=== PATIENT | male | born 1960 | race Caucasian/White ===

== ENCOUNTER 2021-09-22 20:00 | Inpatient (IN) ==
[2021-09-22] MEDS ORDERED: SODIUM CHLORIDE 0.9% 500 ML IV STA (21:27)
[2021-09-22] MEDS ORDERED: PANTOPRAZOLE INJ 80 MG in SODIUM CHLORIDE 0.9% 100 ML IV STA (21:27)
[2021-09-22 21:48] LABS: Basophils % 0.2 % (0.0-0.8); Eosinophils % 0.1 % (0.00-10.9); Hematocrit 29.3 VOL% (42.0-52.0); Hemoglobin 8.8 GM/DL (14.0-18.0); Immature Granulocytes % 0.4 %; Immature Granulocytes Absolute 0.04 #; Lymphocytes # 1.5 10*3/uL (1.4-4.0); Lymphocytes % 16.3 % (21.2-54.2); Mean Corpuscular Volume 70.4 FL (87-102); Mean Platelet Volume 9.2 FL (9.6-12.0); Monocytes % 10.9 % (1.7-12.7); Neutrophils % 72.1 % (38.7-73.9); Platelet Count 398 T/CUMM (130-400); Red Blood Count 4.16 MC/CUMM (3.8-5.5); Red Cell Distribution Width 18.6 % (9.3-17.3); White Blood Count 9.1 T/CUMM (4-12)
[2021-09-22] MEDS ORDERED: PANTOPRAZOLE 40 MG VIAL IV ONE ×2 (21:49→22:04)
[2021-09-22 22:09] LABS: Alanine Aminotransferase 25 U/L (16-61); Albumin 2.6 G/DL (3.4-5.0); Alkaline Phosphatase 190 U/L (45-117); Aspartate Amino Transferase 22 U/L (0-37); Bilirubin,Total < 0.39 MG/DL (0.20-1.00); Blood Urea Nitrogen 15 MG/DL (7-18); Calcium 8.8 MG/DL (8.5-10.1); Carbon Dioxide 30 MMOL/L (21-32); Chloride 103 MMOL/L (98-107); Estimated Glom Filtration Rate 110 ML/MIN; Glucose 179 MG/DL (74-106); Osmolality,Calculated 277.8 MOS/KG (273-304); Potassium 3.6 MMOL/L (3.5-5.1); Sodium 137 MMOL/L (136-145); Total Protein 6.9 G/DL (6.4-8.2)
[2021-09-22] MEDS ORDERED: ONDANSETRON 4 MG/2 ML VIAL IV PRN (23:43)
[2021-09-22] MEDS ORDERED: GLUCAGON 1 MG VIAL IM PRN (23:43)
[2021-09-22] MEDS ORDERED: hydrALAZINE 20 MG/1 ML VIAL IV PRN (23:43)
[2021-09-22] MEDS ORDERED: DEXTROSE 10% 250 ML BAG IV PRN (23:49)
[2021-09-23] MEDS: PANTOPRAZOLE 40 MG VIAL IV SCH ×3 (00:11→21:20)
[2021-09-23] MEDS ORDERED: IRON SUCROSE 200 MG in SODIUM CHLORIDE 0.9% 100 ML IV ONE (01:52)
[2021-09-23] MEDS ORDERED: FERRIC GLUCONATE COMPLEX 125 MG in SODIUM CHLORIDE 0.9% 100 ML IV ONE (02:00)
[2021-09-23] MEDS: LACTATED RINGERS 1,000 ML IV SCH ×4 (03:45→22:50)
[2021-09-23 05:18] LABS: Basophils % 0.3 % (0.0-0.8); Eosinophils % 0.1 % (0.00-10.9); Hematocrit 26.4 VOL% (42.0-52.0); Immature Granulocytes % 0.4 %; Immature Granulocytes Absolute 0.03 #; Lymphocytes % 28.9 % (21.2-54.2); Mean Corpuscular HGB Conc 30.3 GM/DL (32-36); Mean Platelet Volume 10.1 FL (9.6-12.0); Monocytes # 0.6 10*3/uL (0.11-0.8); Monocytes % 8.5 % (1.7-12.7); Neutrophils % 61.8 % (38.7-73.9); Platelet Count 228 T/CUMM (130-400); Red Blood Count 3.72 MC/CUMM (3.8-5.5); Red Cell Distribution Width 18.6 % (9.3-17.3); White Blood Count 6.9 T/CUMM (4-12)
[2021-09-23 05:39] LABS: Band Neutrophils 1 % (0-10); Lymphocytes 29 % (20-55); Total Cells Counted 100
[2021-09-23 05:40] LABS: Anisocytosis Slight; Ovalocytes Few; Platelet Estimate Normal; Polychromasia Slight; Tear Drop Cells Few
[2021-09-23 06:47] LABS: Alanine Aminotransferase 20 U/L (16-61); Albumin 2.2 G/DL (3.4-5.0); Alkaline Phosphatase 167 U/L (45-117); Aspartate Amino Transferase 12 U/L (0-37); Bilirubin,Total < 0.39 MG/DL (0.20-1.00); Blood Urea Nitrogen 11 MG/DL (7-18); Calcium 8.4 MG/DL (8.5-10.1); Carbon Dioxide 26 MMOL/L (21-32); Chloride 106 MMOL/L (98-107); Estimated Glom Filtration Rate 116 ML/MIN; Glucose 122 MG/DL (74-106); Osmolality,Calculated 278.4 MOS/KG (273-304); Potassium 3.5 MMOL/L (3.5-5.1); Sodium 140 MMOL/L (136-145); Total Protein 6.3 G/DL (6.4-8.2)
[2021-09-23] MEDS: ACETAMINOPHEN 325 MG TABLET PO PRN (07:50)
[2021-09-23] MEDS ORDERED: POTASSIUM CHLORIDE 20 MEQ TABLET PO ONE (08:34)
[2021-09-23] MEDS ORDERED: LOSARTAN 25 MG TABLET PO SCH (09:00)
[2021-09-23] MEDS ORDERED: PANTOPRAZOLE 40 MG TABLET PO SCH (09:00)
[2021-09-23] MEDS ORDERED: CELECOXIB 200 MG CAPSULE PO SCH (09:00)
[2021-09-23] MEDS: CALCIUM CARBONATE CHEW 500 MG TABLET PO SCH (10:02)
[2021-09-23] MEDS: FLUDROCORTISONE 0.1 MG TABLET PO SCH (10:02)
[2021-09-23] MEDS: PREGABALIN 75 MG CAPSULE PO SCH ×2 (10:02→21:20)
[2021-09-23] MEDS: predniSONE 5 MG TABLET PO SCH (10:03)
[2021-09-23] MEDS: atenoloL 50 MG TABLET PO SCH ×2 (10:04→21:21)
[2021-09-23] MEDS: AMIODARONE 200 MG TABLET PO SCH (10:04)
[2021-09-23] MEDS: BACLOFEN 10 MG TABLET PO SCH ×2 (10:05→21:20)
[2021-09-23] MEDS: TAMSULOSIN 0.4 MG CAPSULE PO SCH (10:05)
[2021-09-23] MEDS: LOSARTAN 50 MG TABLET PO SCH (10:05)
[2021-09-23] MEDS: BISACODYL 5 MG TABLET PO SCH ×2 (11:24→17:33)
[2021-09-23] MEDS ORDERED: POLYETHYLENE GLYCOL POWDER 255 GM BOTTLE PO ONE (18:00)
[2021-09-23] MEDS ORDERED: MAGNESIUM CITRATE 300 ML BOTTLE PO ONE (21:00)
[2021-09-23] MEDS ORDERED: SIMVASTATIN 20 MG TABLET PO SCH (21:00)
[2021-09-23] MEDS ORDERED: DEXTROSE 50% 25 GM/50 ML VIAL IV PRN (21:02)
[2021-09-23] MEDS: BIMATOPROST 0.01% OPH SOLN 2.5 ML BOTTLE BOTH EYES SCH (21:20)
[2021-09-23] MEDS: INSULIN LISPRO 100 UNIT/ML SUBCUT SCH (21:22)
[2021-09-24] MEDS: BISACODYL 5 MG TABLET PO SCH (00:34)
[2021-09-24 04:27] LABS: Basophils % 0.1 % (0.0-0.8); Eosinophils % 0.4 % (0.00-10.9); Hematocrit 29.5 VOL% (42.0-52.0); Hemoglobin 8.7 GM/DL (14.0-18.0); Immature Granulocytes % 0.7 %; Immature Granulocytes Absolute 0.05 #; Lymphocytes # 1.5 10*3/uL (1.4-4.0); Lymphocytes % 19.8 % (21.2-54.2); Mean Corpuscular HGB Conc 29.5 GM/DL (32-36); Mean Corpuscular Volume 71.1 FL (87-102); Monocytes # 0.9 10*3/uL (0.11-0.8); Monocytes % 11.5 % (1.7-12.7); Neutrophils % 67.5 % (38.7-73.9); Platelet Count 357 T/CUMM (130-400); Red Blood Count 4.15 MC/CUMM (3.8-5.5); Red Cell Distribution Width 18.6 % (9.3-17.3); White Blood Count 7.6 T/CUMM (4-12)
[2021-09-24 04:47] LABS: Alanine Aminotransferase 21 U/L (16-61); Albumin 2.4 G/DL (3.4-5.0); Alkaline Phosphatase 162 U/L (45-117); Aspartate Amino Transferase 13 U/L (0-37); Bilirubin,Total < 0.39 MG/DL (0.20-1.00); Blood Urea Nitrogen 6 MG/DL (7-18); Calcium 8.7 MG/DL (8.5-10.1); Carbon Dioxide 28 MMOL/L (21-32); Chloride 107 MMOL/L (98-107); Eosinophils 1 % (0-10); Estimated Glom Filtration Rate 123 ML/MIN; Glucose 108 MG/DL (74-106); Hypochromia 1+; Lymphocytes 20 % (20-55); Microcytosis 1+; Osmolality,Calculated 281.1 MOS/KG (273-304); Platelet Estimate Adequate; Potassium 3.3 MMOL/L (3.5-5.1); Sodium 142 MMOL/L (136-145); Total Cells Counted 100; Total Protein 6.6 G/DL (6.4-8.2)
[2021-09-24] MEDS ORDERED: POTASSIUM CHLORIDE 20 MEQ TABLET PO PRN (07:43)
[2021-09-24] MEDS: atenoloL 50 MG TABLET PO SCH ×2 (09:00→21:00)
[2021-09-24] MEDS: BACLOFEN 10 MG TABLET PO SCH ×2 (09:00→21:00)
[2021-09-24] MEDS: PANTOPRAZOLE 40 MG VIAL IV SCH ×2 (09:00→21:01)
[2021-09-24] MEDS: PREGABALIN 75 MG CAPSULE PO SCH ×2 (09:00→21:00)
[2021-09-24] MEDS: INSULIN LISPRO 100 UNIT/ML SUBCUT SCH ×7 (10:07→22:14)
[2021-09-24] MEDS: LACTATED RINGERS 1,000 ML IV SCH ×3 (11:23→21:13)
[2021-09-24] MEDS ORDERED: LIDOCAINE 2% 5 ML VIAL ONE (15:07)
[2021-09-24] MEDS ORDERED: propofoL 200 MG/20 ML VIAL IV ONE ×2 (15:07→15:35)
[2021-09-24] MEDS ORDERED: TUBERCULIN SKIN TEST 0.1 ML SYRINGE INTRADERM ONE (15:49)
[2021-09-24] MEDS: AMIODARONE 200 MG TABLET PO SCH (17:05)
[2021-09-24] MEDS: TAMSULOSIN 0.4 MG CAPSULE PO SCH (17:05)
[2021-09-24] MEDS: CALCIUM CARBONATE CHEW 500 MG TABLET PO SCH (17:05)
[2021-09-24] MEDS: FLUDROCORTISONE 0.1 MG TABLET PO SCH (17:05)
[2021-09-24] MEDS: LOSARTAN 50 MG TABLET PO SCH (17:06)
[2021-09-24] MEDS: predniSONE 5 MG TABLET PO SCH (17:18)
[2021-09-24] MEDS ORDERED: predniSONE 5 MG TABLET PO ONE (20:07)
[2021-09-24] MEDS: ACETAMINOPHEN 325 MG TABLET PO PRN (21:00)
[2021-09-24] MEDS: BIMATOPROST 0.01% OPH SOLN 2.5 ML BOTTLE BOTH EYES SCH (21:00)
[2021-09-25] MEDS: LACTATED RINGERS 1,000 ML IV SCH ×3 (01:59→18:16)
[2021-09-25 04:40] LABS: Basophils % 0.2 % (0.0-0.8); Hematocrit 26.5 VOL% (42.0-52.0); Hemoglobin 7.9 GM/DL (14.0-18.0); Immature Granulocytes % 0.5 %; Immature Granulocytes Absolute 0.04 #; Lymphocytes # 0.8 10*3/uL (1.4-4.0); Lymphocytes % 9.9 % (21.2-54.2); Mean Corpuscular HGB Conc 29.8 GM/DL (32-36); Mean Corpuscular Volume 71.2 FL (87-102); Mean Platelet Volume 9.7 FL (9.6-12.0); Monocytes # 0.5 10*3/uL (0.11-0.8); Neutrophils % 83.4 % (38.7-73.9); Platelet Count 326 T/CUMM (130-400); Red Blood Count 3.72 MC/CUMM (3.8-5.5); Red Cell Distribution Width 18.6 % (9.3-17.3); White Blood Count 8.2 T/CUMM (4-12)
[2021-09-25 04:59] LABS: Albumin 2.1 G/DL (3.4-5.0); Bilirubin,Total 0.4 MG/DL (0.20-1.00); Calcium 8.2 MG/DL (8.5-10.1); Osmolality,Calculated 277.5 MOS/KG (273-304); Potassium 4.1 MMOL/L (3.5-5.1); Total Protein 6.1 G/DL (6.4-8.2)
[2021-09-25] MEDS: INSULIN LISPRO 100 UNIT/ML SUBCUT SCH ×7 (07:54→20:32)
[2021-09-25] MEDS: PREGABALIN 75 MG CAPSULE PO SCH ×2 (08:30→20:31)
[2021-09-25] MEDS: CALCIUM CARBONATE CHEW 500 MG TABLET PO SCH (08:30)
[2021-09-25] MEDS: FLUDROCORTISONE 0.1 MG TABLET PO SCH (08:30)
[2021-09-25] MEDS: predniSONE 20 MG TABLET PO SCH (08:30)
[2021-09-25] MEDS: BACLOFEN 10 MG TABLET PO SCH ×2 (08:30→20:31)
[2021-09-25] MEDS: PANTOPRAZOLE 40 MG VIAL IV SCH ×2 (08:31→20:32)
[2021-09-25] MEDS: LOSARTAN 50 MG TABLET PO SCH (08:31)
[2021-09-25] MEDS: TAMSULOSIN 0.4 MG CAPSULE PO SCH (08:31)
[2021-09-25] MEDS: AMIODARONE 200 MG TABLET PO SCH (08:31)
[2021-09-25] MEDS: atenoloL 50 MG TABLET PO SCH ×2 (08:31→20:31)
[2021-09-25] MEDS: ALBUTEROL/IPRATROPIUM 3 ML NEB RESP TX SCH ×2 (14:24→19:55)
[2021-09-25 17:34] LABS: RBC,Urine <1 /HPF (0-4); Squamous Epithelial Cell,Urine Occasional /HPF (0-10)
[2021-09-25 17:40] LABS: Urine Appearance Clear (Clear); Urine Color Yellow (Yellow); Urine pH 6.5 (4.5-8.0)
[2021-09-25 17:41] LABS: Bilirubin,Urine Negative (Negative); Blood, Urine Negative (Negative); Glucose,Urine (UA) 100 mg/dL (Negative); Ketones,Urine Negative (Negative); Nitrite,Urine Negative (Negative); Protein,Urine Negative (Negative); Urine Specific Gravity 1.015 (1.001-1.035)
[2021-09-25] MEDS ORDERED: predniSONE 20 MG TABLET PO ONE (18:00)
[2021-09-25] MEDS: APIXABAN 5 MG TABLET PO SCH (20:31)
[2021-09-25] MEDS: BIMATOPROST 0.01% OPH SOLN 2.5 ML BOTTLE BOTH EYES SCH (20:35)
[2021-09-25] MEDS ORDERED: KETOROLAC 30 MG/1 ML VIAL IV ONE (23:11)
[2021-09-26] MEDS: LACTATED RINGERS 1,000 ML IV SCH (00:55)
[2021-09-26 05:00] LABS: Basophils % 0.2 % (0.0-0.8); Hemoglobin 7.8 GM/DL (14.0-18.0); Immature Granulocytes % 0.3 %; Immature Granulocytes Absolute 0.02 #; Lymphocytes # 0.6 10*3/uL (1.4-4.0); Lymphocytes % 9.5 % (21.2-54.2); Mean Corpuscular HGB Conc 28.9 GM/DL (32-36); Mean Platelet Volume 10.1 FL (9.6-12.0); Monocytes # 0.3 10*3/uL (0.11-0.8); Monocytes % 4.8 % (1.7-12.7); Neutrophils % 85.2 % (38.7-73.9); Platelet Count 360 T/CUMM (130-400); Red Blood Count 3.75 MC/CUMM (3.8-5.5); Red Cell Distribution Width 18.4 % (9.3-17.3); White Blood Count 6.2 T/CUMM (4-12)
[2021-09-26 05:17] LABS: % Iron Saturation 11.7 % (18-50)
[2021-09-26 05:25] LABS: Alanine Aminotransferase 24 U/L (16-61); Albumin 2.4 G/DL (3.4-5.0); Alkaline Phosphatase 176 U/L (45-117); Aspartate Amino Transferase 9 U/L (0-37); Bilirubin,Total < 0.39 MG/DL (0.20-1.00); Blood Urea Nitrogen 12 MG/DL (7-18); Calcium 8.7 MG/DL (8.5-10.1); Carbon Dioxide 25 MMOL/L (21-32); Chloride 108 MMOL/L (98-107); Estimated Glom Filtration Rate 110 ML/MIN; Glucose 346 MG/DL (74-106); Osmolality,Calculated 290.5 MOS/KG (273-304); Potassium 4.4 MMOL/L (3.5-5.1); Sodium 139 MMOL/L (136-145); Total Protein 6.5 G/DL (6.4-8.2)
[2021-09-26 05:31] LABS: Folate 14.43 NG/ML (5.38-24.0)
[2021-09-26] MEDS: INSULIN LISPRO 100 UNIT/ML SUBCUT SCH ×4 (06:43→11:55)
[2021-09-26] MEDS: ALBUTEROL/IPRATROPIUM 3 ML NEB RESP TX SCH ×3 (07:03→13:17)
[2021-09-26] MEDS: FLUDROCORTISONE 0.1 MG TABLET PO SCH (08:22)
[2021-09-26] MEDS: APIXABAN 5 MG TABLET PO SCH (08:22)
[2021-09-26] MEDS: PREGABALIN 75 MG CAPSULE PO SCH (08:22)
[2021-09-26] MEDS: LOSARTAN 50 MG TABLET PO SCH (08:22)
[2021-09-26] MEDS: predniSONE 20 MG TABLET PO SCH (08:22)
[2021-09-26] MEDS: AMIODARONE 200 MG TABLET PO SCH (08:22)
[2021-09-26] MEDS: TAMSULOSIN 0.4 MG CAPSULE PO SCH (08:22)
[2021-09-26] MEDS: BACLOFEN 10 MG TABLET PO SCH (08:22)
[2021-09-26] MEDS: CALCIUM CARBONATE CHEW 500 MG TABLET PO SCH (08:23)
[2021-09-26] MEDS: atenoloL 50 MG TABLET PO SCH (08:23)
[2021-09-26] MEDS: PANTOPRAZOLE 40 MG VIAL IV SCH (08:23)
[2021-09-26 12:29] VITALS: BP 146/66
[2021-09-28] MEDS ORDERED: CHOLECALCIFEROL 1,000 UNIT TABLET PO SCH (09:00)
== END 2021-09-26 16:10 | disposition home or self-care (01) | DRG 375 ==
LOC: N.ED 20:00 → SUATTDRO 23:43 → N.EDINP 23:43 → N.3E 09-23 03:59
PROVIDERS: ADMIT Internal Medicine; ATTEND Internal Medicine

== ENCOUNTER 2021-10-18 12:10 | Inpatient (IN) ==
[2021-10-18 13:22] LABS: Albumin 3.1 G/DL (3.4-5.0); Bilirubin,Total 0.6 MG/DL (0.20-1.00); Calcium 8.8 MG/DL (8.5-10.1); Osmolality,Calculated 281.4 MOS/KG (273-304); Potassium 3.7 MMOL/L (3.5-5.1); Total Protein 6.4 G/DL (6.4-8.2)
[2021-10-18 13:26] LABS: Basophils % 0.4 % (0.0-0.8); Eosinophils % 0.4 % (0.00-10.9); Hematocrit 32.9 VOL% (42.0-52.0); Hemoglobin 9.3 GM/DL (14.0-18.0); Immature Granulocytes % 0.6 %; Immature Granulocytes Absolute 0.06 #; Lymphocytes # 1.5 10*3/uL (1.4-4.0); Mean Corpuscular HGB Conc 28.3 GM/DL (32-36); Mean Corpuscular Volume 72.3 FL (87-102); Mean Platelet Volume 9.6 FL (9.6-12.0); Monocytes # 0.9 10*3/uL (0.11-0.8); Monocytes % 8.6 % (1.7-12.7); Platelet Count 340 T/CUMM (130-400); Red Blood Count 4.55 MC/CUMM (3.8-5.5); Red Cell Distribution Width 21.6 % (9.3-17.3); White Blood Count 10.8 T/CUMM (4-12)
[2021-10-18 13:30] LABS: Anisocytosis Slight; Hypochromia 2+; Macrocytosis Slight; Microcytosis Slight; Platelet Estimate Adequate; Polychromasia 1+
[2021-10-18] MEDS ORDERED: FUROSEMIDE 40 MG/4 ML VIAL IV STA (16:39)
[2021-10-18] MEDS ORDERED: MAGNESIUM SULF RIDER 4 GM/100 ML PREMIX IV PRN (18:13)
[2021-10-18] MEDS ORDERED: DEXTROSE 50% 25 GM/50 ML VIAL IV PRN (18:13)
[2021-10-18] MEDS ORDERED: MAGNESIUM SULF RIDER 2 GM/50 ML PREMIX IV PRN (18:13)
[2021-10-18] MEDS ORDERED: GLUCAGON 1 MG VIAL IM PRN (18:13)
[2021-10-18] MEDS ORDERED: ONDANSETRON 4 MG/2 ML VIAL IV PRN (18:13)
[2021-10-18] MEDS ORDERED: ACETAMINOPHEN 325 MG TABLET PO PRN (18:13)
[2021-10-18] MEDS ORDERED: DEXTROSE 10% 250 ML BAG IV PRN (18:27)
[2021-10-18] MEDS: INSULIN REGULAR 100 UNIT/ML SUBCUT SCH (21:28)
[2021-10-19 04:23] LABS: Anisocytosis Slight; Platelet Estimate Normal
[2021-10-19 04:26] LABS: Albumin 2.9 G/DL (3.4-5.0); Bilirubin,Total 0.4 MG/DL (0.20-1.00); Calcium 8.9 MG/DL (8.5-10.1); Osmolality,Calculated 288.4 MOS/KG (273-304); Potassium 3.8 MMOL/L (3.5-5.1); Total Protein 6.4 G/DL (6.4-8.2)
[2021-10-19 04:32] LABS: Basophils % 0.2 % (0.0-0.8); Eosinophils % 0.2 % (0.00-10.9); Hemoglobin 9.4 GM/DL (14.0-18.0); Immature Granulocytes % 0.6 %; Immature Granulocytes Absolute 0.05 #; Lymphocytes # 1.5 10*3/uL (1.4-4.0); Lymphocytes % 17.4 % (21.2-54.2); Mean Corpuscular HGB Conc 28.3 GM/DL (32-36); Mean Corpuscular Volume 72.5 FL (87-102); Mean Platelet Volume 9.6 FL (9.6-12.0); Monocytes # 0.6 10*3/uL (0.11-0.8); Monocytes % 7.1 % (1.7-12.7); Neutrophils % 74.5 % (38.7-73.9); Platelet Count 370 T/CUMM (130-400); Red Blood Count 4.58 MC/CUMM (3.8-5.5); Red Cell Distribution Width 21.5 % (9.3-17.3); White Blood Count 8.3 T/CUMM (4-12)
[2021-10-19 04:34] LABS: Hematocrit 33.2 VOL% (42.0-52.0)
[2021-10-19 04:49] LABS: Hypochromia 1+
[2021-10-19 04:50] LABS: Microcytosis 1+; Ovalocytes Slight
[2021-10-19] MEDS ORDERED: BACLOFEN 10 MG TABLET PO PRN (07:10)
[2021-10-19] MEDS ORDERED: ASPIRIN 325 MG TABLET PO ONE (07:44)
[2021-10-19] MEDS ORDERED: DIAZEPAM 5 MG TABLET PO ONE (07:44)
[2021-10-19] MEDS ORDERED: diphenhydrAMINE CAP 25 MG CAPSULE PO ONE (07:44)
[2021-10-19] MEDS: INSULIN REGULAR 100 UNIT/ML SUBCUT SCH ×4 (08:35→20:54)
[2021-10-19] MEDS: INSULIN LISPRO 100 UNIT/ML SUBCUT SCH ×3 (08:36→17:26)
[2021-10-19] MEDS ORDERED: atenoloL 25 MG TABLET PO SCH (09:00)
[2021-10-19] MEDS ORDERED: predniSONE 20 MG TABLET PO SCH ×2 (09:00→10:30)
[2021-10-19] MEDS ORDERED: LOSARTAN 50 MG TABLET PO SCH (09:00)
[2021-10-19] MEDS: AMIODARONE 200 MG TABLET PO SCH (10:54)
[2021-10-19] MEDS ORDERED: HEPARIN/NACL 0.9% 2 UNITS/ML 2,000 UNIT/1,000 ML BAG IV ONE (10:55)
[2021-10-19] MEDS ORDERED: MIDAZOLAM 2 MG/2 ML VIAL ONE (11:19)
[2021-10-19] MEDS ORDERED: HYDROmorphone 1 MG/1 ML SYRINGE ONE (11:23)
[2021-10-19] MEDS ORDERED: diphenhydrAMINE 50 MG/1 ML VIAL ONE (11:40)
[2021-10-19] MEDS ORDERED: FUROSEMIDE 40 MG/4 ML VIAL ONE (12:00)
[2021-10-19] MEDS: TAMSULOSIN 0.4 MG CAPSULE PO SCH (12:35)
[2021-10-19] MEDS: FLUDROCORTISONE 0.1 MG TABLET PO SCH (12:35)
[2021-10-19] MEDS: MULTIVITAMIN (INTRINSIC) CAPSULE PO SCH ×2 (12:36→20:52)
[2021-10-19] MEDS: PANTOPRAZOLE 40 MG TABLET PO SCH (12:36)
[2021-10-19] MEDS: PREGABALIN 75 MG CAPSULE PO SCH ×2 (12:36→20:53)
[2021-10-19] MEDS: ENOXAPARIN 40 MG/0.4 ML SYRINGE SUBCUT SCH (12:36)
[2021-10-19] MEDS: CALCIUM CARBONATE CHEW 500 MG TABLET PO SCH (12:36)
[2021-10-19] MEDS: ALBUTEROL/IPRATROPIUM 3 ML NEB RESP TX SCH ×2 (13:40→19:40)
[2021-10-19] MEDS: FUROSEMIDE 40 MG/4 ML VIAL IV SCH ×2 (14:22→17:26)
[2021-10-19] MEDS: DAPAGLIFLOZIN 10 MG TABLET PO SCH (14:22)
[2021-10-19] MEDS: carvediloL 6.25 MG TABLET PO SCH (20:53)
[2021-10-19] MEDS: BIMATOPROST 0.01% OPH SOLN 2.5 ML BOTTLE BOTH EYES SCH (21:02)
[2021-10-20] MEDS: ALBUTEROL/IPRATROPIUM 3 ML NEB RESP TX SCH ×4 (01:47→19:56)
[2021-10-20 05:38] LABS: Calcium 8.1 MG/DL (8.5-10.1); Osmolality,Calculated 283.3 MOS/KG (273-304); Potassium 3.4 MMOL/L (3.5-5.1)
[2021-10-20 05:49] LABS: Platelet Estimate Adequate
[2021-10-20 05:50] LABS: Hypochromia Slight
[2021-10-20 05:51] LABS: Basophils % 0.3 % (0.0-0.8); Eosinophils % 0.1 % (0.00-10.9); Hematocrit 28.9 VOL% (42.0-52.0); Hemoglobin 8.4 GM/DL (14.0-18.0); Immature Granulocytes % 0.4 %; Immature Granulocytes Absolute 0.03 #; Lymphocytes # 1.8 10*3/uL (1.4-4.0); Lymphocytes % 24.9 % (21.2-54.2); Mean Corpuscular HGB Conc 29.1 GM/DL (32-36); Mean Corpuscular Volume 71.4 FL (87-102); Mean Platelet Volume 9.6 FL (9.6-12.0); Monocytes # 0.7 10*3/uL (0.11-0.8); Monocytes % 9.6 % (1.7-12.7); Neutrophils % 64.7 % (38.7-73.9); Platelet Count 321 T/CUMM (130-400); Red Blood Count 4.05 MC/CUMM (3.8-5.5); Red Cell Distribution Width 21.2 % (9.3-17.3); White Blood Count 7.3 T/CUMM (4-12)
[2021-10-20] MEDS ORDERED: methylPREDNISolone SOD SUC 125 MG/2 ML VIAL IV ONE (07:59)
[2021-10-20 08:27] LABS: Arterial Base Excess iSTAT 7 MMOL/L (-2.5-2.5); Arterial Bicarbonate iSTAT 32.2 MMOL/L (20-26); Arterial O2 Saturation iSTAT 92 % (95-100); Arterial PCO2 iSTAT 47 MM HG (35-48); Arterial PO2 iSTAT 63 MM HG (80-95); Arterial Total CO2 iSTAT 34 MMO/L (23-27); Arterial pH iSTAT 7.441 (7.35-7.45)
[2021-10-20] MEDS: MULTIVITAMIN (INTRINSIC) CAPSULE PO SCH ×2 (08:50→21:10)
[2021-10-20] MEDS: CALCIUM CARBONATE CHEW 500 MG TABLET PO SCH (08:50)
[2021-10-20] MEDS: AMIODARONE 200 MG TABLET PO SCH (08:50)
[2021-10-20] MEDS: PREGABALIN 75 MG CAPSULE PO SCH ×2 (08:50→21:10)
[2021-10-20] MEDS: PANTOPRAZOLE 40 MG TABLET PO SCH (08:51)
[2021-10-20] MEDS: TAMSULOSIN 0.4 MG CAPSULE PO SCH (08:51)
[2021-10-20] MEDS: carvediloL 6.25 MG TABLET PO SCH ×2 (08:51→21:09)
[2021-10-20] MEDS: FLUDROCORTISONE 0.1 MG TABLET PO SCH (08:51)
[2021-10-20] MEDS: SACUBITRIL/VALSARTAN 49-51 MG TABLET PO SCH ×2 (08:51→21:09)
[2021-10-20] MEDS: DAPAGLIFLOZIN 10 MG TABLET PO SCH (08:51)
[2021-10-20] MEDS: ENOXAPARIN 40 MG/0.4 ML SYRINGE SUBCUT SCH (08:55)
[2021-10-20] MEDS: FUROSEMIDE 40 MG/4 ML VIAL IV SCH ×2 (08:56→16:56)
[2021-10-20] MEDS: INSULIN REGULAR 100 UNIT/ML SUBCUT SCH ×4 (09:05→21:12)
[2021-10-20] MEDS: INSULIN LISPRO 100 UNIT/ML SUBCUT SCH ×3 (09:05→18:35)
[2021-10-20] MEDS ORDERED: POTASSIUM CHLORIDE 20 MEQ TABLET PO ONE (09:26)
[2021-10-20] MEDS ORDERED: PIPERACILLIN/TAZOBACTAM 3,375 MG in SODIUM CHLORIDE 0.9% 100 ML IV SCH (10:00)
[2021-10-20] MEDS: methylPREDNISolone SOD SUC 40 MG/1 ML VIAL IV SCH ×2 (14:35→21:12)
[2021-10-20] MEDS: BIMATOPROST 0.01% OPH SOLN 2.5 ML BOTTLE BOTH EYES SCH (21:13)
[2021-10-21] MEDS: ALBUTEROL/IPRATROPIUM 3 ML NEB RESP TX SCH ×4 (00:23→19:10)
[2021-10-21] MEDS: methylPREDNISolone SOD SUC 40 MG/1 ML VIAL IV SCH ×4 (02:21→17:18)
[2021-10-21 06:40] LABS: Calcium 9.6 MG/DL (8.5-10.1); Osmolality,Calculated 285.4 MOS/KG (273-304); Potassium 3.8 MMOL/L (3.5-5.1)
[2021-10-21 07:05] LABS: Immature Granulocytes % 0.7 %; Immature Granulocytes Absolute 0.03 #; Lymphocytes # 0.4 10*3/uL (1.4-4.0); Lymphocytes % 9.4 % (21.2-54.2); Mean Corpuscular Volume 70.6 FL (87-102); Mean Platelet Volume 9.5 FL (9.6-12.0); Monocytes # 0.2 10*3/uL (0.11-0.8); Monocytes % 4.2 % (1.7-12.7); Neutrophils % 85.7 % (38.7-73.9); Platelet Count 368 T/CUMM (130-400); Red Blood Count 5.23 MC/CUMM (3.8-5.5); Red Cell Distribution Width 21.3 % (9.3-17.3); White Blood Count 4.3 T/CUMM (4-12)
[2021-10-21 07:06] LABS: Hematocrit 36.9 VOL% (42.0-52.0); Hemoglobin 10.7 GM/DL (14.0-18.0)
[2021-10-21 07:07] LABS: Burr Cells Few; Platelet Estimate Normal
[2021-10-21 07:08] LABS: Anisocytosis 1+
[2021-10-21] MEDS: INSULIN REGULAR 100 UNIT/ML SUBCUT SCH ×4 (08:42→21:00)
[2021-10-21] MEDS: AMIODARONE 200 MG TABLET PO SCH (10:14)
[2021-10-21] MEDS: PREGABALIN 75 MG CAPSULE PO SCH ×2 (10:15→20:59)
[2021-10-21] MEDS: CALCIUM CARBONATE CHEW 500 MG TABLET PO SCH (10:15)
[2021-10-21] MEDS: MULTIVITAMIN (INTRINSIC) CAPSULE PO SCH ×2 (10:15→20:59)
[2021-10-21] MEDS: FLUDROCORTISONE 0.1 MG TABLET PO SCH (10:15)
[2021-10-21] MEDS: TAMSULOSIN 0.4 MG CAPSULE PO SCH (10:15)
[2021-10-21] MEDS: INSULIN GLARGINE 100 UNIT/ML SUBCUT SCH (10:15)
[2021-10-21] MEDS: SACUBITRIL/VALSARTAN 49-51 MG TABLET PO SCH ×2 (10:15→20:59)
[2021-10-21] MEDS: DAPAGLIFLOZIN 10 MG TABLET PO SCH (10:15)
[2021-10-21] MEDS: PANTOPRAZOLE 40 MG TABLET PO SCH (10:15)
[2021-10-21] MEDS: INSULIN LISPRO 100 UNIT/ML SUBCUT SCH ×3 (10:16→17:18)
[2021-10-21] MEDS: FUROSEMIDE 40 MG/4 ML VIAL IV SCH (10:17)
[2021-10-21] MEDS: carvediloL 6.25 MG TABLET PO SCH (10:17)
[2021-10-21] MEDS: SPIRONOLACTONE 25 MG TABLET PO SCH (13:13)
[2021-10-21] MEDS: FUROSEMIDE 40 MG TABLET PO SCH (17:17)
[2021-10-21] MEDS: carvediloL 12.5 MG TABLET PO SCH (20:59)
[2021-10-21] MEDS: BIMATOPROST 0.01% OPH SOLN 2.5 ML BOTTLE BOTH EYES SCH (21:00)
[2021-10-22] MEDS: ALBUTEROL/IPRATROPIUM 3 ML NEB RESP TX SCH ×2 (01:10→07:25)
[2021-10-22] MEDS: methylPREDNISolone SOD SUC 40 MG/1 ML VIAL IV SCH ×2 (02:29→09:38)
[2021-10-22 05:04] LABS: Basophils % 0.1 % (0.0-0.8); Hematocrit 30.5 VOL% (42.0-52.0); Hemoglobin 8.9 GM/DL (14.0-18.0); Immature Granulocytes % 0.6 %; Immature Granulocytes Absolute 0.07 #; Lymphocytes # 0.3 10*3/uL (1.4-4.0); Lymphocytes % 2.6 % (21.2-54.2); Mean Corpuscular HGB Conc 29.2 GM/DL (32-36); Mean Corpuscular Volume 70.9 FL (87-102); Mean Platelet Volume 9.7 FL (9.6-12.0); Monocytes # 0.3 10*3/uL (0.11-0.8); Monocytes % 2.2 % (1.7-12.7); Neutrophils % 94.5 % (38.7-73.9); Platelet Count 323 T/CUMM (130-400); Red Cell Distribution Width 20.9 % (9.3-17.3); White Blood Count 11.8 T/CUMM (4-12)
[2021-10-22 05:25] LABS: Lymphocytes 1 % (20-55); Total Cells Counted 100
[2021-10-22 05:26] LABS: Calcium 8.8 MG/DL (8.5-10.1); Hypochromia 1+; Microcytosis 1+; Osmolality,Calculated 291.3 MOS/KG (273-304); Platelet Estimate Adequate; Potassium 3.7 MMOL/L (3.5-5.1)
[2021-10-22 08:49] LABS: INR 1.1; PT Patient Result 12.3 SECS (10.5-12.0)
[2021-10-22] MEDS ORDERED: FERRIC GLUCONATE COMPLEX 125 MG in SODIUM CHLORIDE 0.9% 100 ML IV ONE (09:00)
[2021-10-22] MEDS: INSULIN REGULAR 100 UNIT/ML SUBCUT SCH ×2 (09:25→12:40)
[2021-10-22] MEDS: INSULIN LISPRO 100 UNIT/ML SUBCUT SCH ×2 (09:31→12:40)
[2021-10-22] MEDS: AMIODARONE 200 MG TABLET PO SCH (09:32)
[2021-10-22] MEDS: FUROSEMIDE 40 MG TABLET PO SCH (09:32)
[2021-10-22] MEDS: SPIRONOLACTONE 25 MG TABLET PO SCH (09:32)
[2021-10-22] MEDS: DAPAGLIFLOZIN 10 MG TABLET PO SCH (09:33)
[2021-10-22] MEDS: carvediloL 12.5 MG TABLET PO SCH (09:33)
[2021-10-22] MEDS: SACUBITRIL/VALSARTAN 49-51 MG TABLET PO SCH (09:33)
[2021-10-22] MEDS: TAMSULOSIN 0.4 MG CAPSULE PO SCH (09:34)
[2021-10-22] MEDS: FLUDROCORTISONE 0.1 MG TABLET PO SCH (09:34)
[2021-10-22] MEDS: PANTOPRAZOLE 40 MG TABLET PO SCH (09:34)
[2021-10-22] MEDS: PREGABALIN 75 MG CAPSULE PO SCH (09:34)
[2021-10-22] MEDS: INSULIN GLARGINE 100 UNIT/ML SUBCUT SCH (09:34)
[2021-10-22] MEDS: MULTIVITAMIN (INTRINSIC) CAPSULE PO SCH (09:35)
[2021-10-22] MEDS: CALCIUM CARBONATE CHEW 500 MG TABLET PO SCH (09:35)
[2021-10-22 12:14] VITALS: BP 115/57
[2021-10-22] MEDS ORDERED: APIXABAN 5 MG TABLET PO SCH (21:00)
== END 2021-10-22 12:44 | disposition home health service (06) | DRG 286 ==
LOC: N.ED 12:10 → N.EDINP 18:42 → INTOOBSV 18:42 → N.TELEN 21:26
PROVIDERS: ADMIT Internal Medicine; ATTEND Internal Medicine

== ENCOUNTER 2022-01-09 04:31 | Inpatient (IN) ==
[2022-01-01 13:06] LABS: PT Patient Result 10.8 SECS (10.5-12.0); Partial Thromboplastin Time 29.1 SECS (23.7-32.9)
[2022-01-01 13:12] LABS: Basophils % 0.3 % (0.0-0.8); Eosinophils % 0.1 % (0.00-10.9); Hematocrit 35.1 VOL% (42.0-52.0); Hemoglobin 10.6 GM/DL (14.0-18.0); Immature Granulocytes Absolute 0.11 #; Lymphocytes # 1.9 10*3/uL (1.4-4.0); Lymphocytes % 18.2 % (21.2-54.2); Mean Corpuscular HGB Conc 30.2 GM/DL (32-36); Mean Corpuscular Volume 77.3 FL (87-102); Mean Platelet Volume 9.5 FL (9.6-12.0); Monocytes # 0.9 10*3/uL (0.11-0.8); Monocytes % 8.4 % (1.7-12.7); Platelet Count 269 T/CUMM (130-400); Red Blood Count 4.54 MC/CUMM (3.8-5.5); Red Cell Distribution Width 22.6 % (9.3-17.3); White Blood Count 10.7 T/CUMM (4-12)
[2022-01-01 13:19] LABS: Calcium 8.8 MG/DL (8.5-10.1); Osmolality,Calculated 298.6 MOS/KG (273-304); Potassium 4.8 MMOL/L (3.5-5.1)
[2022-01-09] MEDS ORDERED: HYDROCORTISONE 100 MG VIAL IV ONE (06:00)
[2022-01-09] MEDS ORDERED: ROCURONIUM 50 MG/5 ML VIAL IV ONE (06:16)
[2022-01-09] MEDS ORDERED: propofoL 200 MG/20 ML VIAL IV ONE (06:16)
[2022-01-09] MEDS ORDERED: fentaNYL 100 MCG/2 ML VIAL ONE ×2 (06:16→09:46)
[2022-01-09] MEDS ORDERED: LIDOCAINE 2% 5 ML VIAL ONE (06:16)
[2022-01-09] MEDS ORDERED: MIDAZOLAM 2 MG/2 ML VIAL ONE (06:16)
[2022-01-09] MEDS ORDERED: ROPIVACAINE 0.5% 30 ML VIAL ONE ×2 (06:26→06:30)
[2022-01-09] MEDS ORDERED: DEXAMETHASONE 4 MG/1 ML VIAL ONE (06:26)
[2022-01-09] MEDS ORDERED: LIDOCAINE 1% 5 ML VIAL ONE (06:26)
[2022-01-09] MEDS ORDERED: TISSUE ADHESIVE 1 EACH APPLICATOR TOP ONE (06:30)
[2022-01-09] MEDS ORDERED: LACTATED RINGERS 1,000 ML IV SCH (06:30)
[2022-01-09] MEDS ORDERED: ERTAPENEM 1,000 MG VIAL ONE (06:30)
[2022-01-09] MEDS ORDERED: ERTAPENEM 1,000 MG in SODIUM CHLORIDE 0.9% 100 ML IV ONE (07:30)
[2022-01-09] MEDS ORDERED: PHENYLEPHRINE 1 MG/10 ML SYRINGE IV ONE ×2 (07:42→10:00)
[2022-01-09] MEDS ORDERED: ETOMIDATE 40 MG/20 ML VIAL IV ONE (07:42)
[2022-01-09] MEDS ORDERED: ONDANSETRON 4 MG/2 ML VIAL ONE (07:42)
[2022-01-09] MEDS ORDERED: SODIUM CHLORIDE 0.9% 1,000 ML IV ONE (07:42)
[2022-01-09] MEDS ORDERED: SUCCINYLCHOLINE 200 MG/10 ML VIAL ONE (07:43)
[2022-01-09] MEDS ORDERED: ACETAMINOPHEN INJ 1,000 MG/100 ML VIAL IV ONE (07:59)
[2022-01-09 08:10] LABS: Bacteria,Urine Occasional /HPF (Few); Mucus,Urine Occasional /LPF (Occasional)
[2022-01-09 08:11] LABS: Bilirubin,Urine Negative (Negative); Blood, Urine Negative (Negative); Glucose,Urine (UA) 500 mg/dL (Negative); Ketones,Urine Negative (Negative); Nitrite,Urine Negative (Negative); Protein,Urine Negative (Negative); Urine Appearance Clear (Clear); Urine Color Yellow (Yellow); Urine Specific Gravity > 1.030 (1.001-1.035)
[2022-01-09] MEDS ORDERED: PHENYLEPHRINE DRIP 20 MG/250 ML PREMIX IV ONE (08:24)
[2022-01-09] MEDS ORDERED: MINERAL OIL/PETROLATUM OPH OINT 3.5 GM TUBE ONE (08:45)
[2022-01-09] MEDS ORDERED: INDOCYANINE GREEN 25 MG VIAL IV ONE (08:51)
[2022-01-09] MEDS ORDERED: SUGAMMADEX 200 MG/2 ML VIAL IV ONE (09:34)
[2022-01-09] MEDS ORDERED: SEVOFLURANE 1 UNIT/15 MINUTE INH ONE (10:13)
[2022-01-09] MEDS ORDERED: ONDANSETRON 4 MG/2 ML VIAL IV PRN ×2 (10:21→10:31)
[2022-01-09] MEDS ORDERED: ACETAMINOPHEN 325 MG TABLET PO PRN (10:21)
[2022-01-09] MEDS ORDERED: BACLOFEN 10 MG TABLET PO PRN (10:25)
[2022-01-09] MEDS ORDERED: GLUCAGON 1 MG VIAL IM PRN (10:28)
[2022-01-09] MEDS ORDERED: DEXTROSE 5% LACTATED RINGERS 1,000 ML IV SCH (10:30)
[2022-01-09] MEDS: HYDROmorphone 1 MG/1 ML SYRINGE IV PRN ×6 (10:35→20:32)
[2022-01-09] MEDS ORDERED: INSULIN REGULAR 100 UNIT/ML SUBCUT SCH (12:00)
[2022-01-09] MEDS: INSULIN REGULAR 100 UNIT/ML SUBCUT SCH ×3 (12:25→17:06)
[2022-01-09] MEDS: LACTATED RINGERS 1,000 ML IV SCH ×2 (12:27→20:33)
[2022-01-09] MEDS: HYDROCORTISONE 100 MG VIAL IV SCH ×2 (14:07→21:52)
[2022-01-09] MEDS: carvediloL 12.5 MG TABLET PO SCH (17:04)
[2022-01-09] MEDS: PREGABALIN 75 MG CAPSULE PO SCH (20:14)
[2022-01-09] MEDS: ALVIMOPAN 12 MG CAPSULE PO SCH (20:14)
[2022-01-09] MEDS: SACUBITRIL/VALSARTAN 49-51 MG TABLET PO SCH (20:14)
[2022-01-09] MEDS ORDERED: BIMATOPROST 0.01% OPH SOLN 2.5 ML BOTTLE BOTH EYES SCH (21:00)
[2022-01-09] MEDS: LATANOPROST 0.005% OPH SOLN 2.5 ML BOTTLE BOTH EYES SCH (21:54)
[2022-01-09] MEDS: CARTEOLOL 1% OPH SOLN 5 ML BOTTLE BOTH EYES SCH (21:54)
[2022-01-09] MEDS: DEXTROSE 10% 250 ML BAG IV PRN (22:51)
[2022-01-10] MEDS: INSULIN REGULAR 100 UNIT/ML SUBCUT SCH ×5 (00:04→23:20)
[2022-01-10] MEDS: HYDROmorphone 1 MG/1 ML SYRINGE IV PRN ×4 (03:14→19:00)
[2022-01-10] MEDS: LACTATED RINGERS 1,000 ML IV SCH (03:15)
[2022-01-10] MEDS: HYDROCORTISONE 100 MG VIAL IV SCH ×2 (05:16→17:19)
[2022-01-10 05:28] LABS: Calcium 8.6 MG/DL (8.5-10.1); Osmolality,Calculated 281.4 MOS/KG (273-304); Potassium 4.5 MMOL/L (3.5-5.1)
[2022-01-10 05:35] LABS: Basophils % 0.2 % (0.0-0.8); Hematocrit 39.9 VOL% (42.0-52.0); Immature Granulocytes % 0.9 %; Immature Granulocytes Absolute 0.16 #; Lymphocytes % 5.8 % (21.2-54.2); Mean Corpuscular HGB Conc 30.1 GM/DL (32-36); Mean Corpuscular Volume 78.2 FL (87-102); Mean Platelet Volume 9.9 FL (9.6-12.0); Monocytes # 1.2 10*3/uL (0.11-0.8); Monocytes % 7.1 % (1.7-12.7); Platelet Count 281 T/CUMM (130-400); White Blood Count 17.4 T/CUMM (4-12)
[2022-01-10] MEDS: carvediloL 12.5 MG TABLET PO SCH ×2 (08:45→16:14)
[2022-01-10] MEDS: ALVIMOPAN 12 MG CAPSULE PO SCH ×2 (08:45→20:17)
[2022-01-10] MEDS: SACUBITRIL/VALSARTAN 49-51 MG TABLET PO SCH ×2 (08:45→20:16)
[2022-01-10] MEDS: PREGABALIN 75 MG CAPSULE PO SCH ×2 (08:46→20:17)
[2022-01-10] MEDS: AMIODARONE 200 MG TABLET PO SCH (08:46)
[2022-01-10] MEDS: ENOXAPARIN 40 MG/0.4 ML SYRINGE SUBCUT SCH (08:46)
[2022-01-10] MEDS: TAMSULOSIN 0.4 MG CAPSULE PO SCH (08:47)
[2022-01-10] MEDS: PANTOPRAZOLE 40 MG VIAL IV SCH (08:48)
[2022-01-10] MEDS: CARTEOLOL 1% OPH SOLN 5 ML BOTTLE BOTH EYES SCH ×2 (08:48→20:17)
[2022-01-10] MEDS: METHOCARBAMOL INJ 500 MG in SODIUM CHLORIDE 0.9% 100 ML IV SCH ×2 (11:24→17:12)
[2022-01-10] MEDS: LATANOPROST 0.005% OPH SOLN 2.5 ML BOTTLE BOTH EYES SCH (20:17)
[2022-01-11] MEDS: METHOCARBAMOL INJ 500 MG in SODIUM CHLORIDE 0.9% 100 ML IV SCH ×3 (01:00→17:11)
[2022-01-11] MEDS: HYDROCORTISONE 100 MG VIAL IV SCH (05:12)
[2022-01-11] MEDS: INSULIN REGULAR 100 UNIT/ML SUBCUT SCH ×2 (05:20→17:45)
[2022-01-11] MEDS: carvediloL 12.5 MG TABLET PO SCH ×2 (08:19→17:11)
[2022-01-11] MEDS: SACUBITRIL/VALSARTAN 49-51 MG TABLET PO SCH ×2 (08:19→20:53)
[2022-01-11] MEDS: PREGABALIN 75 MG CAPSULE PO SCH ×2 (08:20→20:54)
[2022-01-11] MEDS: PANTOPRAZOLE 40 MG VIAL IV SCH (08:20)
[2022-01-11] MEDS: TAMSULOSIN 0.4 MG CAPSULE PO SCH (08:20)
[2022-01-11] MEDS: AMIODARONE 200 MG TABLET PO SCH (08:20)
[2022-01-11] MEDS: ENOXAPARIN 40 MG/0.4 ML SYRINGE SUBCUT SCH (08:20)
[2022-01-11] MEDS: ALVIMOPAN 12 MG CAPSULE PO SCH ×2 (08:20→20:53)
[2022-01-11] MEDS: CARTEOLOL 1% OPH SOLN 5 ML BOTTLE BOTH EYES SCH ×2 (08:21→20:57)
[2022-01-11 09:28] LABS: Basophils % 0.1 % (0.0-0.8); Hematocrit 39.9 VOL% (42.0-52.0); Hemoglobin 12.1 GM/DL (14.0-18.0); Immature Granulocytes % 0.8 %; Immature Granulocytes Absolute 0.13 #; Lymphocytes # 0.5 10*3/uL (1.4-4.0); Lymphocytes % 3.1 % (21.2-54.2); Mean Corpuscular HGB Conc 30.3 GM/DL (32-36); Mean Corpuscular Volume 77.3 FL (87-102); Mean Platelet Volume 9.5 FL (9.6-12.0); Monocytes # 0.9 10*3/uL (0.11-0.8); Monocytes % 5.5 % (1.7-12.7); Neutrophils % 90.5 % (38.7-73.9); Platelet Count 290 T/CUMM (130-400); Red Blood Count 5.16 MC/CUMM (3.8-5.5); White Blood Count 16.7 T/CUMM (4-12)
[2022-01-11 09:58] LABS: Lymphocytes 1 % (20-55); Total Cells Counted 100
[2022-01-11 09:59] LABS: Hypochromia 1+; Microcytosis 1+
[2022-01-11 10:00] LABS: Platelet Estimate Normal
[2022-01-11] MEDS: INSULIN LISPRO 100 UNIT/ML SUBCUT SCH ×3 (12:20→20:55)
[2022-01-11] MEDS: FLUDROCORTISONE 0.1 MG TABLET PO SCH (13:30)
[2022-01-11] MEDS: predniSONE 20 MG TABLET PO SCH (13:30)
[2022-01-11] MEDS: APIXABAN 5 MG TABLET PO SCH (20:53)
[2022-01-11] MEDS: INSULIN GLARGINE 100 UNIT/ML SUBCUT SCH (20:55)
[2022-01-11] MEDS: LATANOPROST 0.005% OPH SOLN 2.5 ML BOTTLE BOTH EYES SCH (20:58)
[2022-01-12] MEDS: METHOCARBAMOL INJ 500 MG in SODIUM CHLORIDE 0.9% 100 ML IV SCH ×3 (01:14→18:04)
[2022-01-12] MEDS: DEXTROSE 10% 250 ML BAG IV PRN (06:22)
[2022-01-12] MEDS: INSULIN LISPRO 100 UNIT/ML SUBCUT SCH ×4 (07:42→20:40)
[2022-01-12] MEDS: AMIODARONE 200 MG TABLET PO SCH (08:54)
[2022-01-12] MEDS: TAMSULOSIN 0.4 MG CAPSULE PO SCH (08:54)
[2022-01-12] MEDS: FUROSEMIDE 40 MG TABLET PO SCH (08:54)
[2022-01-12] MEDS: FLUDROCORTISONE 0.1 MG TABLET PO SCH (08:54)
[2022-01-12] MEDS: ALVIMOPAN 12 MG CAPSULE PO SCH (08:54)
[2022-01-12] MEDS: SPIRONOLACTONE 25 MG TABLET PO SCH (08:54)
[2022-01-12] MEDS: predniSONE 20 MG TABLET PO SCH (08:54)
[2022-01-12] MEDS: carvediloL 12.5 MG TABLET PO SCH ×2 (08:54→16:29)
[2022-01-12] MEDS: APIXABAN 5 MG TABLET PO SCH ×2 (08:54→20:39)
[2022-01-12] MEDS: SACUBITRIL/VALSARTAN 49-51 MG TABLET PO SCH ×2 (08:54→20:39)
[2022-01-12] MEDS: PREGABALIN 75 MG CAPSULE PO SCH ×2 (08:55→20:39)
[2022-01-12] MEDS: CARTEOLOL 1% OPH SOLN 5 ML BOTTLE BOTH EYES SCH ×2 (08:55→20:39)
[2022-01-12] MEDS: PANTOPRAZOLE 40 MG VIAL IV SCH (08:55)
[2022-01-12 11:18] LABS: Hematocrit 28.4 VOL% (42.0-52.0); Hemoglobin 8.6 GM/DL (14.0-18.0)
[2022-01-12] MEDS: INSULIN GLARGINE 100 UNIT/ML SUBCUT SCH (20:40)
[2022-01-12] MEDS: LATANOPROST 0.005% OPH SOLN 2.5 ML BOTTLE BOTH EYES SCH (20:44)
[2022-01-13] MEDS: METHOCARBAMOL INJ 500 MG in SODIUM CHLORIDE 0.9% 100 ML IV SCH ×3 (01:09→17:57)
[2022-01-13 06:38] LABS: Basophils % 0.2 % (0.0-0.8); Eosinophils % 0.2 % (0.00-10.9); Hematocrit 29.7 VOL% (42.0-52.0); Hemoglobin 8.9 GM/DL (14.0-18.0); Immature Granulocytes % 1.3 %; Immature Granulocytes Absolute 0.15 #; Lymphocytes # 1.9 10*3/uL (1.4-4.0); Lymphocytes % 16.5 % (21.2-54.2); Mean Platelet Volume 9.9 FL (9.6-12.0); Monocytes # 0.9 10*3/uL (0.11-0.8); Monocytes % 8.1 % (1.7-12.7); Neutrophils % 73.7 % (38.7-73.9); Platelet Count 269 T/CUMM (130-400); Red Blood Count 3.76 MC/CUMM (3.8-5.5); Red Cell Distribution Width 20.6 % (9.3-17.3); White Blood Count 11.7 T/CUMM (4-12)
[2022-01-13 06:47] LABS: Osmolality,Calculated 286.8 MOS/KG (273-304); Potassium 3.9 MMOL/L (3.5-5.1)
[2022-01-13] MEDS: INSULIN LISPRO 100 UNIT/ML SUBCUT SCH ×4 (07:29→21:04)
[2022-01-13] MEDS: FLUDROCORTISONE 0.1 MG TABLET PO SCH (08:50)
[2022-01-13] MEDS: SPIRONOLACTONE 25 MG TABLET PO SCH (08:50)
[2022-01-13] MEDS: AMIODARONE 200 MG TABLET PO SCH (08:50)
[2022-01-13] MEDS: carvediloL 12.5 MG TABLET PO SCH ×2 (08:50→16:18)
[2022-01-13] MEDS: PREGABALIN 75 MG CAPSULE PO SCH ×2 (08:50→21:05)
[2022-01-13] MEDS: SACUBITRIL/VALSARTAN 49-51 MG TABLET PO SCH ×2 (08:50→21:05)
[2022-01-13] MEDS: TAMSULOSIN 0.4 MG CAPSULE PO SCH (08:50)
[2022-01-13] MEDS: CARTEOLOL 1% OPH SOLN 5 ML BOTTLE BOTH EYES SCH ×2 (08:51→21:04)
[2022-01-13] MEDS: FUROSEMIDE 40 MG TABLET PO SCH (08:51)
[2022-01-13] MEDS: predniSONE 20 MG TABLET PO SCH (08:51)
[2022-01-13] MEDS: APIXABAN 5 MG TABLET PO SCH ×2 (08:51→21:05)
[2022-01-13] MEDS: PANTOPRAZOLE 40 MG VIAL IV SCH (08:51)
[2022-01-13] MEDS: INSULIN GLARGINE 100 UNIT/ML SUBCUT SCH (21:04)
[2022-01-13] MEDS: LATANOPROST 0.005% OPH SOLN 2.5 ML BOTTLE BOTH EYES SCH (21:07)
[2022-01-14] MEDS: METHOCARBAMOL INJ 500 MG in SODIUM CHLORIDE 0.9% 100 ML IV SCH (01:27)
[2022-01-14 05:26] LABS: Basophils % 0.3 % (0.0-0.8); Eosinophils % 0.2 % (0.00-10.9); Hematocrit 28.9 VOL% (42.0-52.0); Hemoglobin 8.6 GM/DL (14.0-18.0); Immature Granulocytes % 1.4 %; Immature Granulocytes Absolute 0.14 #; Lymphocytes # 1.9 10*3/uL (1.4-4.0); Lymphocytes % 18.9 % (21.2-54.2); Mean Corpuscular HGB Conc 29.8 GM/DL (32-36); Mean Corpuscular Volume 78.7 FL (87-102); Mean Platelet Volume 9.7 FL (9.6-12.0); Monocytes # 0.8 10*3/uL (0.11-0.8); Monocytes % 8.4 % (1.7-12.7); Neutrophils % 70.8 % (38.7-73.9); Platelet Count 299 T/CUMM (130-400); Red Blood Count 3.67 MC/CUMM (3.8-5.5); Red Cell Distribution Width 20.3 % (9.3-17.3)
[2022-01-14 05:52] LABS: Calcium 8.9 MG/DL (8.5-10.1); Osmolality,Calculated 282.7 MOS/KG (273-304); Potassium 3.5 MMOL/L (3.5-5.1)
[2022-01-14] MEDS ORDERED: INSULIN LISPRO 100 UNIT/ML SUBCUT SCH ×2 (07:30→08:00)
[2022-01-14] MEDS: SPIRONOLACTONE 25 MG TABLET PO SCH (10:31)
[2022-01-14] MEDS: FUROSEMIDE 40 MG TABLET PO SCH (10:31)
[2022-01-14] MEDS: carvediloL 12.5 MG TABLET PO SCH ×2 (10:31→17:23)
[2022-01-14] MEDS: FLUDROCORTISONE 0.1 MG TABLET PO SCH (10:31)
[2022-01-14] MEDS: AMIODARONE 200 MG TABLET PO SCH (10:31)
[2022-01-14] MEDS: TAMSULOSIN 0.4 MG CAPSULE PO SCH (10:31)
[2022-01-14] MEDS: SACUBITRIL/VALSARTAN 49-51 MG TABLET PO SCH ×2 (10:32→21:44)
[2022-01-14] MEDS: PREGABALIN 75 MG CAPSULE PO SCH ×2 (10:32→21:44)
[2022-01-14] MEDS: predniSONE 20 MG TABLET PO SCH (10:32)
[2022-01-14] MEDS: INSULIN LISPRO 100 UNIT/ML SUBCUT SCH ×3 (10:33→17:24)
[2022-01-14] MEDS: APIXABAN 5 MG TABLET PO SCH ×2 (10:33→21:44)
[2022-01-14] MEDS: PANTOPRAZOLE 40 MG VIAL IV SCH (10:37)
[2022-01-14] MEDS: CARTEOLOL 1% OPH SOLN 5 ML BOTTLE BOTH EYES SCH ×2 (10:39→21:50)
[2022-01-14] MEDS: INSULIN GLARGINE 100 UNIT/ML SUBCUT SCH (21:48)
[2022-01-14] MEDS: LATANOPROST 0.005% OPH SOLN 2.5 ML BOTTLE BOTH EYES SCH (21:50)
[2022-01-15] MEDS ORDERED: DEXTROSE 50% 25 GM/50 ML VIAL IV PRN (08:42)
[2022-01-15] MEDS ORDERED: GLUCAGON 1 MG VIAL IM PRN (08:42)
[2022-01-15] MEDS: SACUBITRIL/VALSARTAN 49-51 MG TABLET PO SCH (08:52)
[2022-01-15] MEDS: FUROSEMIDE 40 MG TABLET PO SCH (08:53)
[2022-01-15] MEDS: PREGABALIN 75 MG CAPSULE PO SCH (08:53)
[2022-01-15] MEDS: APIXABAN 5 MG TABLET PO SCH (08:53)
[2022-01-15] MEDS: AMIODARONE 200 MG TABLET PO SCH (08:53)
[2022-01-15] MEDS: TAMSULOSIN 0.4 MG CAPSULE PO SCH (08:53)
[2022-01-15] MEDS: carvediloL 12.5 MG TABLET PO SCH (08:53)
[2022-01-15] MEDS: predniSONE 20 MG TABLET PO SCH (08:53)
[2022-01-15] MEDS: SPIRONOLACTONE 25 MG TABLET PO SCH (08:53)
[2022-01-15] MEDS: FLUDROCORTISONE 0.1 MG TABLET PO SCH (08:53)
[2022-01-15] MEDS: CARTEOLOL 1% OPH SOLN 5 ML BOTTLE BOTH EYES SCH (08:58)
[2022-01-15] MEDS: PANTOPRAZOLE 40 MG VIAL IV SCH (08:58)
[2022-01-15] MEDS: INSULIN LISPRO 100 UNIT/ML SUBCUT SCH ×2 (08:58→12:09)
[2022-01-15 12:21] VITALS: BP 107/40
== END 2022-01-15 15:01 | disposition home or self-care (01) | DRG 330 ==
LOC: N.OR 04:31 → N.SDSINP 05:02 → N.3E 10:21
PROVIDERS: ADMIT Student in an Organized Health Care Education/Training Program; ATTEND Student in an Organized Health Care Education/Training Program

== ENCOUNTER 2022-05-19 14:30 | Observation (INO) ==
[2022-05-19 16:40] LABS: Basophils % 0.2 % (0.0-0.8); Hemoglobin 9.4 GM/DL (14.0-18.0); Immature Granulocytes % 0.6 %; Immature Granulocytes Absolute 0.05 #; Lymphocytes % 10.7 % (21.2-54.2); Mean Corpuscular HGB Conc 29.4 GM/DL (32-36); Mean Corpuscular Volume 69.3 FL (87-102); Mean Platelet Volume 9.6 FL (9.6-12.0); Monocytes # 0.5 10*3/uL (0.11-0.8); Monocytes % 6.1 % (1.7-12.7); Neutrophils % 82.4 % (38.7-73.9); Platelet Count 249 T/CUMM (130-400); Red Blood Count 4.62 MC/CUMM (3.8-5.5); Red Cell Distribution Width 18.6 % (9.3-17.3); White Blood Count 8.9 T/CUMM (4-12)
[2022-05-19 17:05] LABS: Albumin 3.2 G/DL (3.4-5.0); Bilirubin,Total 0.6 MG/DL (0.20-1.00); Calcium 8.8 MG/DL (8.5-10.1); Osmolality,Calculated 288.4 MOS/KG (273-304); Potassium 4.8 MMOL/L (3.5-5.1); Total Protein 6.3 G/DL (6.4-8.2)
[2022-05-19] MEDS ORDERED: INSULIN REGULAR 100 UNIT/ML IV STA (17:10)
[2022-05-19 17:12] LABS: ABG Base Excess -0.7 MMOL/L (-2.5-2.5); ABG HCO3 23.8 MMOL/L (20-26); ABG Oxygen Saturation 97.5 % (95-100); ABG PCO2 37.7 MM HG (35-48); ABG PH 7.407 (7.35-7.45); ABG TCO2 21.9 MMOL/L (23-27)
[2022-05-19] MEDS ORDERED: ACETAMINOPHEN 325 MG TABLET PO PRN (19:11)
[2022-05-19] MEDS ORDERED: ONDANSETRON 4 MG/2 ML VIAL IV PRN (19:11)
[2022-05-19] MEDS ORDERED: DOCUSATE SODIUM 100 MG CAPSULE PO PRN (19:11)
[2022-05-19] MEDS ORDERED: GLUCAGON 1 MG VIAL IM PRN (19:11)
[2022-05-19] MEDS ORDERED: ENOXAPARIN 40 MG/0.4 ML SYRINGE SUBCUT SCH (19:30)
[2022-05-19] MEDS ORDERED: DEXTROSE 10% 250 ML BAG IV PRN (19:35)
[2022-05-19] MEDS ORDERED: BACLOFEN 10 MG TABLET PO PRN (20:56)
[2022-05-19] MEDS: INSULIN REGULAR 100 UNIT/ML SUBCUT SCH (22:04)
[2022-05-19] MEDS: APIXABAN 5 MG TABLET PO SCH (22:04)
[2022-05-19] MEDS: INSULIN GLARGINE 100 UNIT/ML SUBCUT SCH (22:05)
[2022-05-19] MEDS: sitaGLIPtin 100 MG TABLET PO SCH (22:05)
[2022-05-19] MEDS: carvediloL 12.5 MG TABLET PO SCH (22:05)
[2022-05-19] MEDS: TAMSULOSIN 0.4 MG CAPSULE PO SCH (22:05)
[2022-05-19] MEDS: CARTEOLOL 1% OPH SOLN 5 ML BOTTLE BOTH EYES SCH (22:05)
[2022-05-19] MEDS: SACUBITRIL/VALSARTAN 49-51 MG TABLET PO SCH (22:05)
[2022-05-19] MEDS: LATANOPROST 0.005% OPH SOLN 2.5 ML BOTTLE BOTH EYES SCH (22:05)
[2022-05-19] MEDS: FUROSEMIDE 40 MG TABLET PO SCH (22:06)
[2022-05-19] MEDS: PREGABALIN 75 MG CAPSULE PO SCH (22:06)
[2022-05-20 05:14] LABS: Basophils % 0.1 % (0.0-0.8); Eosinophils % 0.2 % (0.00-10.9); Hematocrit 34.8 VOL% (42.0-52.0); Hemoglobin 9.9 GM/DL (14.0-18.0); Immature Granulocytes % 0.6 %; Immature Granulocytes Absolute 0.05 #; Lymphocytes # 1.6 10*3/uL (1.4-4.0); Lymphocytes % 19.5 % (21.2-54.2); Mean Corpuscular HGB Conc 28.4 GM/DL (32-36); Mean Corpuscular Volume 69.9 FL (87-102); Mean Platelet Volume 9.9 FL (9.6-12.0); Monocytes # 0.9 10*3/uL (0.11-0.8); Monocytes % 10.9 % (1.7-12.7); Neutrophils % 68.7 % (38.7-73.9); Platelet Count 263 T/CUMM (130-400); Red Blood Count 4.98 MC/CUMM (3.8-5.5); Red Cell Distribution Width 19.1 % (9.3-17.3); White Blood Count 8.2 T/CUMM (4-12)
[2022-05-20 05:24] LABS: Calcium 9.4 MG/DL (8.5-10.1); Osmolality,Calculated 292.1 MOS/KG (273-304); Thyroid Stimulating Hormone 4.38 uIU/ml (0.358-3.74)
[2022-05-20 05:34] LABS: Hypochromia 1+
[2022-05-20 05:35] LABS: Microcytosis 1+
[2022-05-20 05:36] LABS: Ovalocytes Slight; Platelet Estimate Normal
[2022-05-20] MEDS: INSULIN REGULAR 100 UNIT/ML SUBCUT SCH ×4 (08:07→22:22)
[2022-05-20] MEDS: INSULIN LISPRO 100 UNIT/ML SUBCUT SCH ×3 (08:07→17:37)
[2022-05-20] MEDS: AMIODARONE 200 MG TABLET PO SCH (08:58)
[2022-05-20] MEDS: APIXABAN 5 MG TABLET PO SCH ×2 (08:58→22:25)
[2022-05-20] MEDS: DAPAGLIFLOZIN 10 MG TABLET PO SCH (08:58)
[2022-05-20] MEDS: PANTOPRAZOLE 40 MG TABLET PO SCH (08:58)
[2022-05-20] MEDS: carvediloL 12.5 MG TABLET PO SCH ×2 (08:59→22:25)
[2022-05-20] MEDS ORDERED: predniSONE 20 MG TABLET PO SCH (09:00)
[2022-05-20] MEDS: FUROSEMIDE 40 MG TABLET PO SCH ×2 (09:01→22:26)
[2022-05-20] MEDS: SACUBITRIL/VALSARTAN 49-51 MG TABLET PO SCH ×2 (09:01→22:25)
[2022-05-20] MEDS: FERROUS SULFATE 325 MG TABLET PO SCH (09:01)
[2022-05-20] MEDS: SPIRONOLACTONE 25 MG TABLET PO SCH (09:02)
[2022-05-20] MEDS: CARTEOLOL 1% OPH SOLN 5 ML BOTTLE BOTH EYES SCH ×2 (09:06→22:27)
[2022-05-20] MEDS: HYDROCORTISONE 100 MG VIAL IV SCH ×2 (09:58→17:32)
[2022-05-20] MEDS: FLUTICASONE 50 MCG NASAL SPRAY 16 GM BOTTLE BOTH NARES SCH (13:15)
[2022-05-20] MEDS: CETIRIZINE 10 MG TABLET PO SCH (13:15)
[2022-05-20] MEDS: INSULIN GLARGINE 100 UNIT/ML SUBCUT SCH (22:23)
[2022-05-20] MEDS: PREGABALIN 75 MG CAPSULE PO SCH (22:26)
[2022-05-20] MEDS: TAMSULOSIN 0.4 MG CAPSULE PO SCH (22:26)
[2022-05-20] MEDS: sitaGLIPtin 100 MG TABLET PO SCH (22:26)
[2022-05-20] MEDS: LATANOPROST 0.005% OPH SOLN 2.5 ML BOTTLE BOTH EYES SCH (22:27)
[2022-05-21] MEDS: HYDROCORTISONE 100 MG VIAL IV SCH ×2 (01:29→10:59)
[2022-05-21 05:13] LABS: Calcium 8.7 MG/DL (8.5-10.1); Osmolality,Calculated 288.3 MOS/KG (273-304); Potassium 4.1 MMOL/L (3.5-5.1)
[2022-05-21 06:37] LABS: Basophils % 0.1 % (0.0-0.8); Hematocrit 33.8 VOL% (42.0-52.0); Hemoglobin 9.7 GM/DL (14.0-18.0); Immature Granulocytes % 0.7 %; Immature Granulocytes Absolute 0.07 #; Lymphocytes # 1.2 10*3/uL (1.4-4.0); Lymphocytes % 12.6 % (21.2-54.2); Mean Corpuscular HGB Conc 28.7 GM/DL (32-36); Mean Corpuscular Volume 70.4 FL (87-102); Mean Platelet Volume 9.5 FL (9.6-12.0); Monocytes # 0.4 10*3/uL (0.11-0.8); Monocytes % 4.3 % (1.7-12.7); Neutrophils % 82.3 % (38.7-73.9); Platelet Count 270 T/CUMM (130-400); Red Cell Distribution Width 18.7 % (9.3-17.3); White Blood Count 9.5 T/CUMM (4-12)
[2022-05-21] MEDS: INSULIN LISPRO 100 UNIT/ML SUBCUT SCH ×2 (07:44→11:06)
[2022-05-21] MEDS: INSULIN REGULAR 100 UNIT/ML SUBCUT SCH ×3 (08:14→16:03)
[2022-05-21] MEDS ORDERED: SODIUM CHLORIDE 0.9% 1,000 ML IV SCH (09:00)
[2022-05-21] MEDS: FLUTICASONE 50 MCG NASAL SPRAY 16 GM BOTTLE BOTH NARES SCH (09:08)
[2022-05-21] MEDS: CARTEOLOL 1% OPH SOLN 5 ML BOTTLE BOTH EYES SCH (09:10)
[2022-05-21] MEDS ORDERED: ceFAZolin 1,000 MG VIAL IRRIG ONE (10:00)
[2022-05-21] MEDS: APIXABAN 5 MG TABLET PO SCH (10:08)
[2022-05-21] MEDS: SACUBITRIL/VALSARTAN 49-51 MG TABLET PO SCH (14:24)
[2022-05-21] MEDS: carvediloL 12.5 MG TABLET PO SCH (14:24)
[2022-05-21] MEDS: AMIODARONE 200 MG TABLET PO SCH (14:24)
[2022-05-21] MEDS: SPIRONOLACTONE 25 MG TABLET PO SCH (14:24)
[2022-05-21] MEDS: PANTOPRAZOLE 40 MG TABLET PO SCH (14:25)
[2022-05-21] MEDS: FUROSEMIDE 40 MG TABLET PO SCH (14:25)
[2022-05-21] MEDS: FERROUS SULFATE 325 MG TABLET PO SCH (14:25)
[2022-05-21] MEDS: CETIRIZINE 10 MG TABLET PO SCH (14:25)
[2022-05-21] MEDS: DAPAGLIFLOZIN 10 MG TABLET PO SCH (14:25)
[2022-05-21 15:41] VITALS: BP 123/68
== END 2022-05-21 16:06 | disposition home or self-care (01) ==
LOC: EDUNIT# → N.ED 14:30 → N.EDINP 14:30 → SUATTDRO 17:26 → N.EDINP 18:28 → N.2W 18:29
PROVIDERS: ADMIT Internal Medicine; ATTEND Internal Medicine